=== PATIENT | female | born 1955 | race Caucasian/White ===

== ENCOUNTER 2017-01-27 12:45 | Emergency (ER) | payer OTHER ==
[~2017-01-27] VITALS: Ht 157.5 cm; Wt 90.0 kg
[~2017-01-27 12:45] MED LIST: ACYCLOVIR400 MG PO; ADVIL200 MG OR; ANTIVERT PO; CELEBREX200 MG PO; CYMBALTA60 MG PO; FLAGYL500 MG PO; FLEXERIL PO; LORTAB 5 OR; LYRICA200 MG PO; MEDDOSEPAK PO; NAPROSYN500 MG PO; NO CURRENT MEDS; ONDANSETRON4 MG PO; TYLENOL500 MG OR; ULTRAM50 M1 PO; VALTREX500 MG PO; ZOVIRAX5 % TOP
[2017-01-27] MEDS ORDERED: EC-NAPROSYN500 MG PO (13:38)
[2017-01-27 13:43] VITALS: BP 143/73
== END 2017-01-27 13:44 | disposition home or self-care (01) | DRG 563 ==
LOC: ED 12:45
DX: S43.401A Unspecified sprain of right shoulder joint, initial encounter (principal); M19.90 Unspecified osteoarthritis, unspecified site; S93.601A Unspecified sprain of right foot, initial encounter; M79.7 Fibromyalgia; V43.52XA Car driver injured in collision with other type car in traffic accident, initial encounter

== ENCOUNTER 2023-11-25 07:40 | Day surgery (SDC) | payer MEDICARE, MEDICAID ==
[~2023-11-25 07:40] MED LIST changes: +ALLERGY RE50 MCG/ACT; +EC-NAPROSYN500 MG PO; +FLEXERIL5 M1 PO; +GABAPENTIN300 M2 PO; +MONTELUKAST SOD10 MG PO; +NAPROXEN500 MG PO; +VOLTAREN75 MG TOP
[2023-11-25] MEDS ORDERED: LACTATED RINGER'S 1,000 ML IV ONE (07:51)
[2023-11-25] MEDS ORDERED: FAMOTIDINE 10MG/ML 2ML SDV IV ONE (08:22)
[2023-11-25 10:10] VITALS: BP 144/73
[2023-11-25] MEDS ORDERED: LIDOCAINE HCL 2% 2ML SDV IV ONE (12:32)
[2023-11-25] MEDS ORDERED: PROPOFOL 200 MG/20 ML VIAL IV ONE (12:32)
== END 2023-11-25 10:30 | disposition home or self-care (01) ==
LOC: ORM 07:40
PROVIDERS: ATTEND Surgery
PROC: 0DJD8ZZ Inspection of Lower Intestinal Tract, Via Natural or Artificial Opening Endoscopic (ICD-10-PCS; principal; 2023-11-25)
DX: Z12.11 Encounter for screening for malignant neoplasm of colon (principal); K57.30 Diverticulosis of large intestine without perforation or abscess without bleeding; K64.8 Other hemorrhoids; Z80.0 Family history of malignant neoplasm of digestive organs
CPT/HCPCS: G0105